=== PATIENT | female | born 1980 | race Caucasian/White ===

== ENCOUNTER 2022-11-12 08:36 | Emergency (ER) | payer OTHER, SELFPAY ==
[2022-11-12 08:46] VITALS: BP 118/77; PULSE 65; RESP 16; TEMP 36.6; O2SAT 99
--- NOTE | 2022-11-12 08:50 | ED.EYEPROB ---
HPI - Eye Problem General Chief complaint: Eye Problems Stated complaint: Right eye Source: patient and RN notes reviewed History of Present Illness HPI Narrative: 42-year-old female presents to urgent care with complaints of right eye irritation since Thursday last week. Patient states it has been red and swollen and also having drainage and crusting every time she wakes up. Patient states her right eye ago a little blurry if she is focusing on the TV to but of that noticed disturbance. Denies any contact wearing. Denies any fevers or chills. Related Data Allergies Allergy/AdvReac Type Severity Reaction Status Date / Time No Known Allergies Allergy Verified 11/12/22 09:03 Review of Systems Review of Systems: CONSTITUTIONAL: Denies fever, chills, or sweats. EYES: Right eye irritation ENT: Denies otalgia and sore throat CARDIOVASCULAR: Denies chest pain, palpitations, or edema. RESPIRATORY: Denies cough or dyspnea. GASTROINTESTINAL: Denies abdominal pain, nausea, vomiting, or diarrhea. GENITOURINARY: Denies dysuria or hematuria. SKIN: Denies rash or itching. MUSCULOSKELETAL: Denies back pain, joint pain, or myalgia. NEUROLOGIC: Denies headache, numbness, or weakness. Pertinent positives per HPI. PMFSH Comments At the time of my signature, I reviewed and agree with the nursing past medical, surgical, social, and family history. There is no relevant family history pertinent to the patient complaint. Exam Narrative: GENERAL: This is a well-nourished, well-developed patient, in no apparent distress. HEAD: normocephalic, atraumatic. EYES: Sclera clear/white. Vision is grossly intact. Right lower conjunctiva is mildly injected compared to the left. no drainage or surrounding erythremia or edema. EARS: External ears normal, auditory canals clear and without drainage, TMs normal without perforation. Hearing grossly intact. NOSE: External nose normal with no obvious nasal discharge, nares without redness, no rhinorrhea. THROAT: Mucous membranes moist, posterior pharynx clear. NECK: Neck supple, non-tender without lymphadenopathy, masses or thyromegaly. CARDIOVASCULAR: Regular rate RESPIRATORY: No respiratory distress SKIN: warm, intact with no suspicious lesions or rash, good texture and turgor. NEURO: awake, alert, and oriented to person, place and time. There were no obvious focal neurologic abnormalities. Course Course Level of Care: Express Care Visit Vital Signs Vital signs: Vital Signs Temperature 98 F 11/12/22 08:46 Pulse Rate 65 11/12/22 08:46 Respiratory Rate 16 11/12/22 08:46 Blood Pressure 118/77 11/12/22 08:46 Pulse Oximetry 99 11/12/22 08:46 Oxygen Delivery Room Air 11/12/22 08:46 Temperature 98 F 11/12/22 08:46 Pulse Rate 65 11/12/22 08:46 Respiratory Rate 16 11/12/22 08:46 Blood Pressure 118/77 11/12/22 08:46 Pulse Oximetry 99 11/12/22 08:46 Oxygen Delivery Room Air 11/12/22 08:46 Reviewed MDM - Eye Problem MDM Narrative Medical decision making narrative: Your exam today shows Conjunctivitis, You have been given a prescription for eye drops. Use the eye drops as instructed. If you are not better in two (2) days, you need to follow up with an merit system director. Do not rub the eye or put anything else in the eye, this can cause abrasions (scratches) on the eye or lead to vision loss. Also it is important not to touch the tube or tip of drops to the eye, as this can cause further infection. Wash your hands very well before instilling the medication. Handwashing can help prevent the spread of disease. 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
== END 2022-11-12 09:10 | disposition home or self-care (01) ==
PROVIDERS: Emergency Provider Nurse Practitioner Family
DX: H10.9 Unspecified conjunctivitis (principal)
CPT/HCPCS: 99213; G0463